=== PATIENT | female | born 1965 | race American Indian/Alaskan Native ===

== ENCOUNTER 2017-12-02 00:07 | Emergency (ER) | payer SELFPAY ==
[2017-12-02] MEDS ORDERED: ASPIRIN PO ONE (00:45)
[2017-12-02 01:43] LABS: Basophils # (Auto) 0.1 K/mm3 (0.0-0.1); Basophils % (Auto) 0.6 % (0.0-1.8); Eosinophils # (Auto) 0.3 K/mm3 (0.0-0.4); Eosinophils % (Auto) 3.1 % (0.0-4.3); Hematocrit 37.9 % (30.3-42.9); Hemoglobin 11.8 gm/dl (10.1-14.3); Lymphocytes # (Auto) 3.7 K/mm3 (1.2-5.4); Lymphocytes % (Auto) 39.9 % (13.4-35.0); Mean Corpuscular HGB Conc 31 % (30-34); Mean Corpuscular Volume 81 fl (79-97); Monocytes # (Auto) 0.7 K/mm3 (0.0-0.8); Platelet Count 359 K/mm3 (140-440); Red Blood Count 4.67 M/mm3 (3.65-5.03); Red Cell Distribution Width 14.5 % (13.2-15.2)
[2017-12-02 02:01] LABS: BUN/Creatinine Ratio 11; Blood Urea Nitrogen 9 mg/dL (7-17); Calcium 9.3 mg/dL (8.4-10.2); Hemolysis Index 0
[2017-12-02 02:05] LABS: Mean Corpuscular Hemoglobin 25 pg (28-32)
[2017-12-02] MEDS ORDERED: TORADOL IM ONE (10:57)
--- NOTE | 2017-12-02 11:25 | XRay Report ---
AP CHEST : 12/02/17 00:07:00 CLINICAL: Chest pain. COMPARISON:None FINDINGS: Mild cardiomegaly with redistribution of pulmonary blood flow to the upper lobes. The lungs are normally expanded and clear. The bones and soft tissues are unremarkable.No tubes or lines. IMPRESSION: Mild cardiomegaly and pulmonary venous hypertension. No pulmonary edema or pneumonia.
--- NOTE | 2017-12-02 11:54 | Emergency Department Report ---
HPI - General Chief Complaint: Chest Pain Time Seen by Provider: 12/02/17 10:38 - HPI HPI: The patient is a 52-year-old female who presents for evaluation of chest pain. The patient reports chest pain for the past 2 days, constant, crampy in quality , exacerbated with movement of the arms, mild in severity. The patient denies trauma to the chest, cough, syncope, hemoptysis, vomiting, unilateral leg swelling, hormone use, recent immobilization, history of DVT or PE, hx of recent cancer. ED Past Medical Hx - Past Medical History Hx Hypertension: Yes Hx Arthritis: Yes Hx HIV: Yes Additional medical history: chron's - Surgical History Past Surgical History?: Yes Additional Surgical History: hand and ankle - Social History Smoking Status: Current Every Day Smoker Substance Use Type: Alcohol - Medications Home Medications: Home Medications Medication Instructions Recorded Confirmed Last Taken Type traMADol [Ultram 50 MG tab] 50 mg PO Q6HR PRN #10 tablet 12/02/17 Unknown Rx ED Review of Systems ROS: Stated complaint: BUMPS ON VAGINA Other details as noted in HPI Constitutional: denies: fever ENT: denies: throat or neck pain Respiratory: denies: cough, shortness of breath Cardiovascular: reports: chest pain Endocrine: denies unexplained weight loss or gain Gastrointestinal: denies: abdominal pain, nausea Genitourinary: denies: dysuria Musculoskeletal: denies: leg swelling Skin: denies: rash Neurological: denies: headache Hematological/Lymphatic: denies: easy bleeding or easy bruising Psych: denies sadness or hopelessness Physical Exam - Physical Exam Vital Signs: Vital Signs 12/02/17 12/02/17 12/02/17 00:28 05:52 06:36 Temperature 98.7 F 99.0 F Pulse Rate 95 H 99 H 90 Respiratory 16 18 25 H Rate Blood Pressure 118/69 140/82 Blood Pressure [Left] O2 Sat by Pulse 95 99 96 Oximetry 12/02/17 12/02/17 12/02/17 06:45 07:00 07:05 Temperature 98.1 F Pulse Rate 89 92 H 90 Respiratory 39 H 20 24 Rate Blood Pressure 107/70 107/70 Blood Pressure 119/72 [Left] O2 Sat by Pulse 96 96 96 Oximetry 12/02/17 12/02/17 12/02/17 07:10 07:16 07:30 Temperature 98.0 F Pulse Rate 88 88 88 Respiratory 20 34 H 23 Rate Blood Pressure 121/75 121/75 Blood Pressure 121/75 [Left] O2 Sat by Pulse 94 96 98 Oximetry 12/02/17 12/02/17 12/02/17 08:06 08:15 08:30 Temperature Pulse Rate 80 87 86 Respiratory 14 28 H 22 Rate Blood Pressure 121/75 139/95 139/95 Blood Pressure [Left] O2 Sat by Pulse 100 94 94 Oximetry 12/02/17 12/02/17 12/02/17 08:45 09:00 09:16 Temperature Pulse Rate 97 H 86 87 Respiratory 8 L 30 H 21 Rate Blood Pressure 137/92 137/92 141/88 Blood Pressure [Left] O2 Sat by Pulse 96 93 98 Oximetry 12/02/17 10:27 Temperature Pulse Rate 82 Respiratory 26 H Rate Blood Pressure 141/88 Blood Pressure [Left] O2 Sat by Pulse 92 Oximetry Physical Exam: General: well-nourished, well-developed, no acute distress Head: Normocephalic, atraumatic Eyes: normal sclera ENT: Mucous membranes are pale and dry Neck: No neck stiffness, no cervical adenopathy Respiratory: Breath sounds equal bilaterally, no wheezing, rales, or rhonchi Cardio: S1 and S2 present, no murmurs, rubs, gallops, capillary refill is delayed Abdomen: Normoactive bowel sounds, soft abdomen, no rigidity, no guarding or rebound tenderness Chest WALL/Back: No tenderness to palpation of the bilateral chest wall, no pain is elicited with movement of the arms bilaterally, CVA tenderness with percussion Musc: No pitting edema Skin: No rash Neuro: no facial drooping, normal speech Psych: Normal affect ED Course Vital Signs 12/02/17 12/02/17 12/02/17 00:28 05:52 06:36 Temperature 98.7 F 99.0 F Pulse Rate 95 H 99 H 90 Respiratory 16 18 25 H Rate Blood Pressure 118/69 140/82 Blood Pressure [Left] O2 Sat by Pulse 95 99 96 Oximetry 12/02/17 12/02/17 12/02/17 06:45 07:00 07:05 Temperature 98.1 F Pulse Rate 89 92 H 90 Respiratory 39 H 20 24 Rate Blood Pressure 107/70 107/70 Blood Pressure 119/72 [Left] O2 Sat by Pulse 96 96 96 Oximetry 12/02/17 12/02/17 12/02/17 07:10 07:16 07:30 Temperature 98.0 F Pulse Rate 88 88 88 Respiratory 20 34 H 23 Rate Blood Pressure 121/75 121/75 Blood Pressure 121/75 [Left] O2 Sat by Pulse 94 96 98 Oximetry 12/02/17 12/02/17 12/02/17 08:06 08:15 08:30 Temperature Pulse Rate 80 87 86 Respiratory 14 28 H 22 Rate Blood Pressure 121/75 139/95 139/95 Blood Pressure [Left] O2 Sat by Pulse 100 94 94 Oximetry 12/02/17 12/02/17 12/02/17 08:45 09:00 09:16 Temperature Pulse Rate 97 H 86 87 Respiratory 8 L 30 H 21 Rate Blood Pressure 137/92 137/92 141/88 Blood Pressure [Left] O2 Sat by Pulse 96 93 98 Oximetry 12/02/17 10:27 Temperature Pulse Rate 82 Respiratory 26 H Rate Blood Pressure 141/88 Blood Pressure [Left] O2 Sat by Pulse 92 Oximetry ED Medical Decision Making - Lab Data Result diagrams: 12/02/17 01:17 12/02/17 01:17 - Medical Decision Making The patient was seen and examined by myself. The patient is placed on a senior bi architect and continuous pulse ox. On initial evaluation, the patient was found to be in no distress. EKG was negative for findings suggestive of acute cardiac infarct. Labs and imaging are obtained. The patient is given pain medicine. Chest x-ray is negative for pneumothorax, focal consolidation, pulmonary vascular congestion, pleural effusion, or other obvious acute cardiopulmonary disease process. Lab results were non-concerning including levels of troponin, WBC, hemoglobin, hematocrit, electrolytes, renal function. The patient was reevaluated and reported that their symptoms were markedly improved. As the patient has a ANGELA risk score less than 2, and a well's score less than 2, the patient is at low risk of ACS or pulmonary emboli etiology of their symptoms. The patient is stable for discharge with outpatient follow-up. The patient is given follow-up and return instructions. The patient expressed understanding and agreed with the plan. The patient is discharged in stable condition. Critical care attestation.: If time is entered above; I have spent that time in minutes in the direct care of this critically ill patient, excluding procedure time. ED Disposition Clinical Impression: Acute chest pain Disposition: DC-01 TO HOME OR SELFCARE Is pt being admited?: No Does the pt Need Aspirin: No Condition: Stable Instructions: Chest Pain (ED), Costochondritis (ED) Referrals: PRIMARY CARE, [Primary Care Provider] - 3-5 Days Time of Disposition: 11:32
[2017-12-02 12:54] VITALS: BP 125/56
== END 2017-12-02 12:20 | disposition home or self-care (01) ==
LOC: ED 00:07
DX: R07.89 Other chest pain (principal); I10 Essential (primary) hypertension; M19.90 Unspecified osteoarthritis, unspecified site; F17.200 Nicotine dependence, unspecified, uncomplicated; Z88.2 Allergy status to sulfonamides
CPT/HCPCS: 36415; 71045; 80048; 84484; 85025; 93005; 93010; 96372; 99284; J1885